=== PATIENT | male | born 1985 ===

== ENCOUNTER 2017-05-12 16:41 | Emergency (ER) | payer MEDICAID, OTHER ==
[2017-05-12 16:41] VITALS: BMI 23.9
[2017-05-12 17:21] VITALS: TEMP 98.4; O2SAT 100
--- NOTE | 2017-05-12 17:40 | ED PDOC ---
Arrival/HPI - General Time Seen by Provider: 05/12/17 17:19 Historian: Patient - History of Present Illness Narrative History of Present Illness (Text): 05/12/17 17:36 A 32 year old male presents to the emergency department complaining of shortness of breath. Patient notes associated dyspnea on exertion and occasional dizziness. He also reports a 3-4 week history of generalized fatigue , occasional dry/productive cough, decrease appetite and weight loss. He notes losing 8 lbs over the coarse of 4 weeks. Patient denies any fever, chills, nausea, vomiting, abdominal pain, stool changes, hematochezia, chest pain, calf pain, headache or any other complaints. Patient denies any recent travel. pt denies shortness of breath at present time. Time/Duration: Other (sob x today) Context: Home Past Medical History - Provider Review Nursing Documentation Reviewed: Yes - Travel History Have you recently traveled outside [place] w/in the past 3 mons?: No - Infectious Disease Hx of Infectious Diseases: None - Psychiatric Hx Anxiety: Yes Hx Depression: No Hx Emotional Abuse: No Hx Physical Abuse: No Hx Substance Use: No - Surgical History Other/Comment: Hernia repair - Suicidal Assessment Feels Threatened In Home Enviroment: No Family/Social History - Physician Review Nursing Documentation Reviewed: Yes Family/Social History: No Known Family HX Smoking Status: Heavy Smoker > 10 Cigarettes Daily (since the age of 11) Hx Alcohol Use: No Hx Substance Use: No Allergies/Home Meds Allergies/Adverse Reactions: Allergies No Known Allergies Allergy (Verified 05/12/17 17:38) Home Medications: Home Meds Medication Instructions Recorded Confirmed No Known Home Med 05/12/17 05/12/17 Review of Systems - Physician Review All systems were reviewed & negative as marked: Yes - Review of Systems Constitutional: Fatigue, Weight Change. absent: Fevers, Night Sweats ENT: absent: Sore Throat, Sinus Congestion Respiratory: SOB, Cough Cardiovascular: DOBSON. absent: Chest Pain, Palpitations, Calf Pain, Orthopnea, Syncope Gastrointestinal: Appetite Changes. absent: Abdominal Pain, Stool Changes, Nausea, Vomiting, Hematochezia Genitourinary Male: absent: Dysuria, Frequency, Hematuria Musculoskeletal: absent: Arthralgias, Back Pain, Neck Pain Skin: absent: Rash, Pruritis Neurological: Dizziness. absent: Headache Psychiatric: Anxiety. absent: Depression, Suicidal Ideation Physical Exam Vital Signs Reviewed: Yes Vital Signs Temp Pulse Resp BP Pulse Ox 05/12/17 23:45 55 L 16 116/67 100 05/12/17 20:01 56 L 18 115/71 100 05/12/17 17:19 98.4 F 60 18 113/65 100 Temperature: Afebrile Blood Pressure: Normal Pulse: Regular Respiratory Rate: Normal Appearance: Positive for: Well-Appearing, Non-Toxic, Comfortable Pain Distress: None Mental Status: Positive for: Alert and Oriented X 3 - Systems Exam Head: Present: Atraumatic, Normocephalic Pupils: Present: PERRL Extroacular Muscles: Present: EOMI Conjunctiva: Present: Normal Mouth: Present: Moist Mucous Membranes Pharnyx: Present: Normal. No: ERYTHEMA, EXUDATE Nose (External): Present: Atraumatic Nose (Internal): Present: Normal Inspection Neck: Present: Normal Range of Motion. No: Meningeal Signs Respiratory/Chest: Present: Clear to Auscultation, Good Air Exchange. No: Respiratory Distress, Accessory Muscle Use, Wheezes, Decreased Breath Sounds, Rales, Retracting, Rhonchi, Tachypneic, Tender to Palpation Cardiovascular: Present: Regular Rate and Rhythm, Normal S1, S2. No: Murmurs Abdomen: Present: Normal Bowel Sounds. No: Tenderness, Distention, Peritoneal Signs, Rebound, Guarding Back: Present: Normal Inspection Upper Extremity: Present: Normal Inspection. No: Cyanosis, Edema Lower Extremity: Present: Normal Inspection. No: Edema, CALF TENDERNESS Neurological: Present: GCS=15, Speech Normal Skin: Present: Warm, Dry, Normal Color. No: Rashes Psychiatric: Present: Alert, Oriented x 3 Medical Decision Making ED Course and Treatment: 05/12/17 32-year-old male with a history of smoking presents today with dyspnea on exertion and generalized fatigue appetite changes and weight loss ongoing for the past 3-4 weeks CBC within normal limits CMP within normal limits D-dimer within normal limits Troponin within normal limits BNP within normal limits Chest x-ray shows no infiltrate or effusion no cardiomegaly Urinalysis shows trace blood EKG shows normal sinus rhythm at 63 bpm normal axis normal intervals no ST elevations Repeat troponin at 4 hours: Within normal limits Patient reassessment: Patient is nontoxic well-appearing in no distress. Vital signs are stable patient is saturating 100% on room air. He denies any shortness of breath at present time. I discussed all results in depth with the patient is stressed the importance of follow-up with the primary care physician within the next 2 days. Chest the importance of follow-up with a bench worker binding and gang plank workman. I've advised the patient to return immediately if he develops chest pain or if he develops shortness of breath again. I've advised the patient to quit smoking. I stressed the importance of follow-up regarding blood in the urine. Patient verbalizes understanding of discharge instructions and need for immediate followup. all aspects of this case were discussed the attending of record. Impression: shortness of breath quit smoking follow up with the primary care physician within the next 2 days increase fluids return if symptoms worsen,persist or if new symptoms develop. - Lab Interpretations Lab Results: 05/12/17 18:33 05/12/17 18:33 Lab Results 05/12/17 22:39: Troponin I < 0.01 05/12/17 19:54: Urine Color Yellow, Urine Appearance Clear, Urine pH 6.0, Ur Specific Warren >= 1.030, Urine Protein Negative, Urine Glucose (UA) Negative, Urine Ketones Negative, Urine Blood Trace-lysed H, Urine Nitrate Negative, Urine Bilirubin Negative, Urine Urobilinogen 0.2, Ur Leukocyte Esterase Negative , Urine RBC 0 - 2, Urine WBC 0 - 2, Ur Epithelial Cells 0 - 2, Urine Bacteria Neg 05/12/17 18:33: Lactate Dehydrogenase 363, Total Creatine Kinase 88, Troponin I < 0.01, NT-Pro-B Natriuret Pep 28.6 05/12/17 18:33: PT 11.7, INR 1.03, APTT 31.5, D-Dimer, Quantitative < 200 05/12/17 18:33: WBC 8.8, RBC 4.77, Hgb 14.0, Hct 40.9 L, MCV 85.7, MCH 29.4, MCHC 34.2, RDW 13.9, Plt Count 244, MPV 9.8, Gran % 52.4, Lymph % (Auto) 35.7 H , Hyde % (Auto) 8.0 H, Eos % (Auto) 3.2, Baso % (Auto) 0.7, Gran # 4.63, Lymph # (Auto) 3.2, Hyde # (Auto) 0.7 H, Eos # (Auto) 0.3, Baso # (Auto) 0.06 05/12/17 18:33: Sodium 140, Potassium 3.8, Chloride 104, Carbon Dioxide 25, Anion Gap 14, BUN 13, Creatinine 0.8, Est GFR ( Amer) > 60, Est GFR (Non- Af Amer) > 60, Random Glucose 93, Calcium 9.9, Total Bilirubin 0.4, AST 32, ALT 49, Alkaline Phosphatase 65, Total Protein 6.7, Albumin 3.9, Globulin 2.8, Albumin/Globulin Ratio 1.4 I have reviewed the lab results: Yes - RAD Interpretation Radiology Orders: 05/12/17 17:27 CHEST PORTABLE [RAD] Stat - Scribe Statement The provider has reviewed the documentation as recorded by the Scribe Iva Nolen Provider Scribe Attestation: All medical record entries made by the Scribe were at my direction and personally dictated by me. I have reviewed the chart and agree that the record accurately reflects my personal performance of the history, physical exam, medical decision making, and the department course for this patient. I have also personally directed, reviewed, and agree with the discharge instructions and disposition. Disposition/Present on Arrival - Present on Arrival Any Indicators Present on Arrival: No History of DVT/PE: No History of Uncontrolled Diabetes: No Urinary Catheter: No History of Decub. Ulcer: No History Surgical Site Infection Following: None - Disposition Have Diagnosis and Disposition been Completed?: Yes Diagnosis: Shortness of breath Disposition: HOME/ ROUTINE Disposition Time: 23:43 Patient Plan: Discharge Condition: GOOD Discharge Instructions (ExitCare): Smoking: Not Just Harmful to Your Lungs and Heart, Shortness of Breath (Dyspnea) (DC), Quitting Smoking Additional Instructions: quit smoking follow up with the primary care physician within the next 2 days increase fluids return if symptoms worsen,persist or if new symptoms develop. Referrals: [facility] at [place] [Outside] - Follow up with primary Bronson Denson MD [Staff Provider] - Follow up with primary Michael Arevalo MD [Staff Provider] - Follow up with primary Forms: WORK NOTE
[2017-05-12 18:58] LABS: BASO # 0.06 K/mm3 (0.0-2.0); BASO % 0.7 % (0.0-3.0); EOS # 0.3 (0.0-0.7); EOS % 3.2 % (1.5-5.0); GRAN # 4.63 (1.4-6.5); GRAN % 52.4 % (50.0-68.0); LYMPH # 3.2 (1.2-3.4); LYMPH % 35.7 % (22.0-35.0); MEAN CELL VOLUME 85.7 fl (80.0-105.0); MEAN CORPUSCULAR HEMOGLOBIN 29.4 pg (25.0-35.0); MEAN CORPUSCULAR HGB CONC 34.2 g/dl (31.0-37.0); MEAN PLATELET VOLUME 9.8 fl (7.0-11.0); MONO # 0.7 (0.1-0.6); RBC 4.77 10^6/uL (3.5-6.1); RED CELL DISTRIBUTION WIDTH 13.9 % (11.5-14.5); WHITE BLOOD COUNT 8.8 10^3/ul (4.5-11.0)
[2017-05-12 19:00] LABS: ALB/GLOB RATIO 1.4 (1.1-1.8); ALBUMIN 3.9 g/dL (3.0-4.8); ALT/SGPT 49 U/L (7-56); AST/SGOT 32 U/L (17-59); BLOOD UREA NITROGEN 13 mg/dL (7-21); CALCIUM 9.9 mg/dL (8.4-10.5); GFR AFRICAN-AMERICAN > 60; GFR NON-AFRICAN AMERICAN > 60
[2017-05-12 19:42] LABS: D DIMER < 200 ng/mL (0-243); INR 1.03 (0.93-1.08); PARTIAL THROMBOPLASTIN TIME 31.5 Seconds (25.1-36.5); PROTHROMBIN TIME 11.7 SECONDS (9.4-12.5)
[2017-05-12 19:53] LABS: B-TYPE NATRIURETIC PEPTIDE 28.6 pg/mL (0-450); TROPONIN I < 0.01 ng/mL
[2017-05-12 20:25] LABS: URINE APPEARANCE CLEAR (CLEAR); URINE BILIRUBIN NEGATIVE (NEGATIVE); URINE BLOOD TRACE-LYSED (NEGATIVE); URINE COLOR YELLOW (YELLOW); URINE GLUCOSE (UA) NEGATIVE (NEGATIVE); URINE LEUKOCYTE ESTERASE NEGATIVE Leu/uL (NEGATIVE); URINE NITRATE NEGATIVE (NEGATIVE); URINE PROTEIN NEGATIVE mg/dL (<30 mg/dL); URINE UROBILINOGEN 0.2 E.U./dL (<1 E.U./dL)
[2017-05-12 20:31] LABS: URINE RBC 0 - 2 /hpf (0-2)
[2017-05-12 20:32] LABS: URINE BACTERIA NEG (NEG); URINE EPITHELIAL CELLS 0 - 2 /hpf (0-5); URINE WBC 0 - 2 /hpf (0-6)
[2017-05-12 23:45] VITALS: BP 116/67; PULSE 55; RESP 16
--- NOTE | 2017-05-13 08:42 | RAD ---
HISTORY: cough/sob COMPARISON: No prior. FINDINGS: LUNGS: No infiltrate is identified bilaterally. There is a questionable nodular density seen at the superior right lung zone at least in part overlying the plane of the right 6th rib posteriorly. PLEURA: No significant pleural effusion identified, no pneumothorax apparent. CARDIOVASCULAR: Normal. OSSEOUS STRUCTURES: No significant abnormalities. VISUALIZED UPPER ABDOMEN: Normal. OTHER FINDINGS: None. IMPRESSION: No acute infiltrate bilaterally. Questionable nodular density superior right lung zone for which follow-up chest CT is advised to exclude potential true nodule. (Assigned PA review)
--- NOTE | 2017-05-13 10:32 | CARD ---
APPROVED REPORT EKG Measurement Heart [id number] <Conclusion> Normal sinus rhythm Normal ECG
== END 2017-05-12 23:53 | disposition home or self-care (01) ==
LOC: ED 16:41
DX: R06.02 Shortness of breath (principal)

== ENCOUNTER 2017-06-06 10:20 | Emergency (ER) | payer OTHER ==
--- NOTE | 2017-06-06 10:22 | ED PDOC ---
Arrival/HPI - General Time Seen by Provider: 06/06/17 10:22 Historian: Patient - History of Present Illness Narrative History of Present Illness (Text): 06/06/17 10:22 32 y/o male, no significant pmh, nkda, chronic smoker for over 20 years, called back to the ER department by KASIA Bella for the CT chest due to the possible nodule found on the lung. Pt. stated that he feels well, no chest pain or shortness of breath, concerning about this possible nodule, no night sweat, no rash, no palpitation, no weight loss, no flank pain, no change in vision, no other medical or psychological complaints. Past Medical History - Provider Review Nursing Documentation Reviewed: Yes - Infectious Disease Hx of Infectious Diseases: None - Cardiac Hx Cardiac Disorders: No - Pulmonary Hx Respiratory Disorders: No - Neurological Hx Neurological Disorder: No - HEENT Hx HEENT Disorder: No - Renal Hx Renal Disorder: No - Endocrine/Metabolic Hx Endocrine Disorders: No - Hematological/Oncological Hx Blood Disorders: No - Integumentary Hx Dermatological Disorder: No - Musculoskeletal/Rheumatological Hx Musculoskeletal Disorders: No - Genitourinary/Gynecological Hx Genitourinary Disorders: No - Psychiatric Hx Anxiety: Yes Hx Depression: No Hx Emotional Abuse: No Hx Physical Abuse: No Hx Substance Use: No - Surgical History Other/Comment: Hernia repair - Suicidal Assessment Feels Threatened In Home Enviroment: No Family/Social History - Physician Review Nursing Documentation Reviewed: Yes Family/Social History: Unknown Family HX Smoking Status: Heavy Smoker > 10 Cigarettes Daily (since the age of 11) Hx Alcohol Use: No Hx Substance Use: No Allergies/Home Meds Allergies/Adverse Reactions: Allergies No Known Allergies Allergy (Verified 06/06/17 10:27) Home Medications: Home Meds Medication Instructions Recorded Confirmed No Known Home Med 05/12/17 06/06/17 Review of Systems - Review of Systems Constitutional: absent: Fatigue, Fevers Eyes: absent: Vision Changes ENT: absent: Hearing Changes Respiratory: absent: SOB, Cough, Sputum, Wheezing Cardiovascular: absent: Chest Pain Gastrointestinal: absent: Abdominal Pain, Diarrhea, Nausea, Vomiting Musculoskeletal: absent: Arthralgias Neurological: absent: Headache, Dizziness Psychiatric: absent: Anxiety, Depression Physical Exam Vital Signs Reviewed: Yes Vital Signs Temp Pulse Resp BP Pulse Ox 06/06/17 12:45 60 18 118/71 100 06/06/17 11:55 62 16 116/80 99 06/06/17 10:28 98.0 F 65 19 114/72 99 Temperature: Afebrile Blood Pressure: Normal Pulse: Bradycardic Respiratory Rate: Normal Appearance: Positive for: Well-Appearing, Non-Toxic, Comfortable Pain Distress: None Mental Status: Positive for: Alert and Oriented X 3 - Systems Exam Head: Present: Atraumatic, Normocephalic Pupils: Present: PERRL Extroacular Muscles: Present: EOMI Conjunctiva: Present: Normal Neck: Present: Normal Range of Motion Respiratory/Chest: Present: Clear to Auscultation, Good Air Exchange. No: Respiratory Distress, Accessory Muscle Use, Wheezes, Decreased Breath Sounds, Rales, Retracting, Rhonchi Cardiovascular: Present: Regular Rate and Rhythm, Normal S1, S2. No: Murmurs Abdomen: Present: Normal Bowel Sounds. No: Tenderness, Distention, Peritoneal Signs Upper Extremity: Present: Normal Inspection. No: Cyanosis, Edema Lower Extremity: Present: Normal Inspection Neurological: Present: GCS=15, Speech Normal, Motor Func Grossly Intact, Gait Normal, Memory Normal Skin: Present: Warm, Dry, Normal Color. No: Rashes Psychiatric: Present: Alert, Oriented x 3, Normal Insight, Normal Concentration Medical Decision Making ED Course and Treatment: 06/06/17 10:52 -CT Chest 06/06/17 12:50 -CT Chest: No evidence of lung nodule. Normal study -Discharge home with copy of the CT chest film, follow up with your own pmd and anvil seating press operator within 2 days, stop smoking, return to the ER for any new or worsening signs or symptoms. - RAD Interpretation Radiology Orders: 06/06/17 10:48 CHEST W/O CONTRAST [CT] Stat LUNGS: Clear lungs. Visualized airway clear. MEDIASTINUM: Unremarkable thoracic aorta. No aneurysm. Normal sized heart. Main pulmonary artery unremarkable. No vascular congestion. No lymphadenopathy. PLEURA: No pleural fluid. No pneumothorax. BONES: No fracture. No destructive lesion. UPPER ABDOMEN: Grossly unremarkable. OTHER FINDINGS: None. IMPRESSION: No evidence of lung nodule. Normal study Engine Mechanic: Radiologist - PA / SPECIALTIES OPERATOR / Resident Statement MD/DO has reviewed & agrees with the documentation as recorded. Disposition/Present on Arrival - Present on Arrival Any Indicators Present on Arrival: No History of DVT/PE: No History of Uncontrolled Diabetes: No Urinary Catheter: No History of Decub. Ulcer: No History Surgical Site Infection Following: None - Disposition Have Diagnosis and Disposition been Completed?: Yes Diagnosis: General medical examination Disposition: HOME/ ROUTINE Disposition Time: 10:53 Patient Plan: Discharge Condition: GOOD Additional Instructions: -Discharge home with copy of the CT chest film, follow up with your own pmd and anvil seating press operator within 2 days, stop smoking, return to the ER for any new or worsening signs or symptoms. Referrals: [facility] [place] - Follow up with primary
[2017-06-06 10:36] VITALS: TEMP 98; BMI 19.4
--- NOTE | 2017-06-06 12:42 | CT ---
PROCEDURE: CT Chest without contrast HISTORY: possible lung nodule? COMPARISON: Portable chest dated 05/12/2017 TECHNIQUE: Contiguous axial images were obtained through the chest without intravenous contrast enhancement. Sagittal and coronal reconstructions were performed. Radiation dose (DLP): 197 mGy-cm. This CT exam was performed using one or more of the following dose reduction techniques: Automated exposure control, adjustment of the mA and/or kV according to patient size, and/or use of iterative reconstruction technique. FINDINGS: LUNGS: Clear lungs. Visualized airway clear. MEDIASTINUM: Unremarkable thoracic aorta. No aneurysm. Normal sized heart. Main pulmonary artery unremarkable. No vascular congestion. No lymphadenopathy. PLEURA: No pleural fluid. No pneumothorax. BONES: No fracture. No destructive lesion. UPPER ABDOMEN: Grossly unremarkable. OTHER FINDINGS: None. IMPRESSION: No evidence of lung nodule. Normal study
[2017-06-06 12:46] VITALS: BP 118/71; PULSE 60; RESP 18; O2SAT 100
== END 2017-06-06 12:57 | disposition home or self-care (01) ==
LOC: ED 10:20
DX: Z04.8 Encounter for examination and observation for other specified reasons (principal)

== ENCOUNTER 2017-12-24 13:09 | Emergency (ER) | payer OTHER ==
[2017-12-24 13:09] VITALS: BMI 23.9
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
[2017-12-24 15:14] VITALS: BP 124/53; PULSE 85; RESP 19; TEMP 98
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
[2017-12-24 15:49] VITALS: O2SAT 97
== END 2017-12-24 15:48 | disposition home or self-care (01) ==
LOC: ED 13:09
DX: S22.42XA Multiple fractures of ribs, left side, initial encounter for closed fracture (principal); Y08.89XA Assault by other specified means, initial encounter; Y92.9 Unspecified place or not applicable
CPT/HCPCS: 71101; 96372; 99284; J1885